=== PATIENT | male | born 1955 | race Caucasian/White ===

== ENCOUNTER → 2021-06-29 | Day surgery (SDC) | payer OTHER, MEDICARE ==
[~2021-06-29] VITALS: Ht 182.9 cm; Wt 105.7 kg
[~2021-06-29] MED LIST: ALEVE220 M1 PO; NORCO5 PO; PREDNISONE 20 M20 M1 PO; ZPAK PO
[2021-06-29 12:20] VITALS: BP 146/75
[2021-06-29 12:34] LABS: HEMATOCRIT 44.8 % (42.0-52.0); HEMOGLOBIN 14.6 gm/dL (14.0-18.0); MCH 30.2 pg (26.0-34.0); MCHC 32.7 g/dL (28.0-37.0); MCV 92.2 fL (80.0-100.0); RBC 4.86 mil/uL (4.50-6.00); RDW 13.7 % (10.5-14.5); WBC 9.5 thou/uL (4.0-11.0)
[2021-06-29 12:56] LABS: CALCIUM 8.7 mg/dL (8.5-10.1); CREATININE 1.1 mg/dL (0.7-1.3); POTASSIUM 4.1 mmol/L (3.5-5.1)
[2021-06-29 13:51] VITALS: BP 146/75
--- NOTE | 2021-07-03 11:07 | PATH ---
[facility] [address] [place] [address] PATHOLOGY RPT PROCEDURE Name: ELVIA BENNETT Chris Room #: REG [facility] M.R.#: [id number] Admission: 06/29/21 Date of : 53 Discharge: Report #: [id number] Path Case #: [id number] [facility] Accession Number: [id number] . 01 Material submitted: . foot - NEUROMA RIGHT FOOT. Modifiers: right . 01 Clinical history: . 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 01 Diagnosis: Soft tissue "right foot": - Hypertrophic nerves consistent with a neuroma. - There is no evidence of atypia or malignancy. (SHA:pit; 07/02/2021) QTP 07/02/2021 1402 Local . 01 Electronically signed: . Venkat Billingsley MD, Pathologist NPI- [id number] . 01 Gross description: . The specimen is received in formalin, labeled "Mello, Elvia, neuroma right foot" and consists of multiple pink-yellow, fatty irregular tissues aggregating 2.4 x 2.0 x 0.4 cm. The largest tissue is sectioned. The specimen is represented in A1. (TELIDA; 06/29/2021) DKA/DKA 06/29/2021 1554 Local . 01 Pathologist provided ICD-10: D36.13 . 01 CPT . 414985 Specimen Comment: A courtesy copy of this report has been sent to [phone] Specimen Comment: Report sent to Specimen Comment: A duplicate report has been generated due to demographic updates. Performed at: [address] [facility], [place], [place] [id number] MD Venkat Billingsley MD Phone: [phone]
== END | disposition home or self-care (01) ==
LOC: OR 08:41
PROVIDERS: ATTEND Podiatrist Foot & Ankle Surgery
DX: G57.81 Other specified mononeuropathies of right lower limb (principal); Z20.822 Contact with and (suspected) exposure to COVID-19; Z98.890 Other specified postprocedural states; Z87.891 Personal history of nicotine dependence; Z79.899 Other long term (current) drug therapy
CPT/HCPCS: 50010; 50101; 50386; 56526; 57091; 57178; 62110; 62850; 70005